=== PATIENT | female | born 1995 | race Caucasian/White ===

== ENCOUNTER 2017-05-15 19:51 | Emergency (ER) | payer BC, OTHER ==
[~2017-05-15] VITALS: Ht 167.6 cm; Wt 110.1 kg
[2017-05-15 19:54] VITALS: TEMP 36.5; Ht 167.6 cm; Wt 110.1 kg
[2017-05-15] MEDS ORDERED: ONDANSETRON INJ 2 MG/ML 2 ML VIAL IV STA ×2 (20:38→22:49)
[2017-05-15] MEDS ORDERED: MECLIZINE HCL 25 MG TAB PO STA (20:38)
[2017-05-15] MEDS ORDERED: SODIUM CHLORIDE 0.9% 1000ML 1,000 ML IV ONE (20:45)
--- NOTE | 2017-05-15 21:15 | EMERGENCY ROOM VISIT NOTE ---
History First contact with patient: 20:24 Chief Complaint: DIZZY Stated Complaint: DIZZY Nursing Triage Summary: Pt stated that she was sitting at her computer around 1830 and became dizzy. Pt then went to lay down and felt like she was going to throw up. Pt became diaphoretic and has thrown up x4. Pt stated that her dizzyness is getting worse. History of Present Illness The patient is a 21 year old female who presents to the Emergency Room with complaints of a sudden onset of dizziness that occurred at approximately 6 PM this afternoon. The patient was working on her computer when she all of a sudden felt extremely sweaty. She laid down in bed. She says that the room then began to spin and she became nauseated. She did have one episode of emesis. She denies any headache. No changes in vision. She does complain that every time she opens her eyes, she feels like the room is spinning. She denies any history of vertigo. This has never happened to her before. She did not eat anything all day. She does report trying to stay well hydrated with water. She denies any chest pain or pressure. No heart palpitations. No recent illnesses. She denies any abdominal pain. No changes in bowel movements. Review of Systems 10 system review performed and negative unless noted in HPI or below Past Medical/Surgical History Otherwise healthy Family History Patient denies any significant family medical history Social History Smoking Status: Never Smoker Alcohol Use: occasionally Drug Use: none Marital Status: in relationship Occupation Status: [employer] Current/Historical Medications Scheduled Meclizine Hcl (Meclizine Hcl), 1 TAB PO TID Scheduled PRN Ondansetron Hcl (Zofran), 4 MG PO Q8H PRN for Nausea Allergies Coded Allergies: No Known Allergies (Unverified , 05/15/17) Physical Exam Vital Signs Date Time Temp Pulse Resp B/P (MAP) Pulse Ox O2 Delivery O2 Flow Rate FiO2 05/15/17 21:31 61 24 131/70 100 Room Air 05/15/17 21:03 74 05/15/17 19:54 36.5 74 18 123/85 100 Room Air Physical Exam VITALS: Vitals are noted on the nurse's note and reviewed by myself. Vital signs stable. GENERAL: 21-year-old female, in mild distress, nondiaphoretic, well-developed well-nourished. SKIN: The skin was without rashes, erythema, edema, or bruising. HEAD: Normocephalic atraumatic. EARS: External auditory canals clear, tympanic membranes pearly alfonso without erythema or effusion bilaterally. EYES: Pupils equal round and reactive to light and accommodation. Conjunctivae without injection, sclerae without icterus. Extraocular movements intact. Slight horizontal nystagmus noted bilaterally. MOUTH: Mucous membranes slightly dry. Tonsils are not enlarged. Pharynx without erythema or exudate. Uvula midline. Airway patent. Tongue does not deviate. NECK: . No lymphadenopathy. Cervical spine is nontender. No JVD. HEART: Regular rate and rhythm without murmurs gallops or rubs. LUNGS: Clear to auscultation bilaterally without wheezes, rales or rhonchi. No accessory muscle use. ABDOMEN: Positive bowel sounds x 4.Soft, nontender, without organomegaly. No guarding or rebound tenderness. MUSCULOSKELETAL: No muscle atrophy, erythema, or edema noted. Strength 5/5 throughout. NEURO: Patient was alert and oriented to person place and time. Cerebellar function intact. Negative Romberg. Normal sensation to touch. No focal neurological deficits. Medical Decision & Procedures Laboratory Results 05/15/17 21:39 Red Blood Count 5.20, Mean Corpuscular Volume 81.2, Mean Corpuscular Hemoglobin 27.1, Mean Corpuscular Hemoglobin Concent 33.4, Mean Platelet Volume 8.7, Neutrophils (%) (Auto) 87.4, Lymphocytes (%) (Auto) 8.0, Monocytes (%) (Auto) 4.3, Eosinophils (%) (Auto) 0.1, Basophils (%) (Auto) 0.1, Neutrophils # (Auto) 13.10, Lymphocytes # (Auto) 1.20, Monocytes # (Auto) 0.65, Eosinophils # (Auto) 0.02, Basophils # (Auto) 0.02 05/15/17 21:39 Test 05/15/17 21:39 05/15/17 21:45 White Blood Count 15.01 K/uL (4.8-10.8) Red Blood Count 5.20 M/uL (4.2-5.4) Hemoglobin 14.1 g/dL (12.0-16.0) Hematocrit 42.2 % (37-47) Mean Corpuscular Volume 81.2 fL (80-100) Mean Corpuscular Hemoglobin 27.1 pg (25-34) Mean Corpuscular Hemoglobin Concent 33.4 g/dl (32-36) Platelet Count 461 K/uL (130-400) Mean Platelet Volume 8.7 fL (7.4-10.4) Neutrophils (%) (Auto) 87.4 % Lymphocytes (%) (Auto) 8.0 % Monocytes (%) (Auto) 4.3 % Eosinophils (%) (Auto) 0.1 % Basophils (%) (Auto) 0.1 % Neutrophils # (Auto) 13.10 K/uL (1.4-6.5) Lymphocytes # (Auto) 1.20 K/uL (1.2-3.4) Monocytes # (Auto) 0.65 K/uL (0.11-0.59) Eosinophils # (Auto) 0.02 K/uL (0-0.5) Basophils # (Auto) 0.02 K/uL (0-0.2) RDW Standard Deviation 38.0 fL (36.4-46.3) RDW Coefficient of Variation 12.7 % (11.5-14.5) Immature Granulocyte % (Auto) 0.1 % Immature Granulocyte # (Auto) 0.02 K/uL (0.00-0.02) Anion Gap 8.0 mmol/L (3-11) Est Creatinine Clear Calc Drug Dose 130.0 ml/min Estimated GFR () 111.9 Estimated GFR (Non- 96.6 BUN/Creatinine Ratio 12.6 (10-20) Calcium Level 9.2 mg/dl (8.5-10.1) Total Bilirubin 0.4 mg/dl (0.2-1) Aspartate Amino Transf (AST/SGOT) 17 U/L (15-37) Alanine Aminotransferase (ALT/SGPT) 29 U/L (12-78) Alkaline Phosphatase 87 U/L (45-117) Total Protein 8.2 gm/dl (6.4-8.2) Albumin 3.9 gm/dl (3.4-5.0) Globulin 4.3 gm/dl (2.5-4.0) Albumin/Globulin Ratio 0.9 (0.9-2) Lipase 184 U/L (73-393) Human Chorionic Gonadotropin, Qual NEG (NEG) Medications Administered Medications (Trade) Dose Ordered Sig/Gerber Route Start Time Stop Time Status Last Admin Dose Admin Sodium Chloride 1,000 ml @ 999 mls/hr Q1H1M ONCE IV 05/15/17 20:45 05/15/17 21:45 DC 05/15/17 21:30 999 MLS/HR Meclizine HCl (Antivert Tab) 25 mg NOW STAT PO 05/15/17 20:38 05/15/17 20:40 DC 05/15/17 21:31 25 MG Ondansetron HCl (Zofran Inj) 4 mg NOW STAT IV 05/15/17 20:38 05/15/17 20:40 DC 05/15/17 21:30 4 MG ED Course Patient was seen and examined Vital signs including blood pressure were reviewed medications list was verified with patient Labs were obtained, and a saline lock was established The patient was hydrated with 1 L of normal saline. She was given meclizine 25 mg po and Zofran 4 mg IV Upon reassessment, the patient was feeling much better. We discussed the results of her workup. We also discussed her diagnosis. She voiced understanding. The patient was given a full pack of meclizine and Zofran I reviewed discharge instructions the patient. They voiced understanding and had no further questions. Medical Decision Differential diagnosis: Vertigo, dehydration, hypoglycemia, acute CVA, atypical migraine, This patient is a 21-year-old female that presents emergency department with a sudden onset of dizziness that she describes as a spinning sensation in addition to diaphoresis and one episode of vomiting. On exam, the patient had horizontal nystagmus. Otherwise, her exam was benign. She did not complain of any headaches. She had very good symptom relief with meclizine, fluids and Zofran. It is likely that she is suffering from vertigo. She did have mild leukocytosis. This is likely secondary to vomiting. She did not have any other infectious symptoms. She was given a prescription for meclizine and Zofran. She was instructed to follow-up with [facility]. She is in agreement to return to the emergency department with any new or worsening symptoms. Impression Primary Impression: Vertigo Departure Information Dispostion Home / Self-Care Condition GOOD Prescriptions Ondansetron Hcl (ZOFRAN) 4 Mg Tab 4 MG PO Q8H Y for Nausea, #20 TAB Prov: Adeola Em PA-C 05/15/17 Meclizine Hcl (MECLIZINE HCL) 25 Mg Tab 1 TAB PO TID for vertigo, #30 TAB Prov: Adeola Em PA-C 05/15/17 Referrals [facility] (PCP) Patient Instructions ED Vertigo Unspecified, My [facility] Additional Instructions You were treated in the emergency department for severe dizziness, vomiting and sweating. This is likely from vertigo. Please take meclizine 1 tab every 8 hours as needed for returning dizziness. Please take Zofran 1 tab every 8 hours as needed for nausea. It is important to stay well hydrated and eat regular meals please follow-up with [facility] within one week for recheck Return to the emergency department if you have any of the following symptoms: -Fever of 103F or greater -Persistent vomiting - Persistent diarrhea -Lethargy -Chest pain -Shortness of breath -Worsening or uncontrolled dizziness -Slurred speech or confusion
[2017-05-15 22:12] LABS: PREG INTERNAL NEGATIVE QC NEG CLEAR BACKGROUND; PREG INTERNAL POSITIVE QC POS CONTROL LINE
[2017-05-15 22:12] LABS: BUN/CREATININE RATIO 12.6 (10-20); CALCIUM 9.2 mg/dl (8.5-10.1); CREATININE 0.86 mg/dl (0.60-1.20); POTASSIUM 3.8 mmol/L (3.5-5.1)
[2017-05-15 22:14] LABS: ALB/GLOB RATIO 0.9 (0.9-2)
[2017-05-15 22:22] LABS: BASO % 0.1 %; BASO ABS # 0.02 K/uL (0-0.2); COMPLETE YES; EOS % 0.1 %; HEMATOCRIT 42.2 % (37-47); IG% 0.1 %; MEAN CELL VOLUME 81.2 fL (80-100); MEAN CORPUSCULAR HEMOGLOBIN 27.1 pg (25-34); MEAN CORPUSCULAR HGB CONC 33.4 g/dl (32-36); MEAN PLATELET VOLUME 8.7 fL (7.4-10.4); MONO % 4.3 %; NEUT % 87.4 %; PLATELET COUNT 461 K/uL (130-400); WHITE BLOOD COUNT 15.01 K/uL (4.8-10.8)
[2017-05-15] MEDS ORDERED: MECL1TAB42 PO (22:25)
[2017-05-15] MEDS ORDERED: ONDA4TAB46 PO (22:25)
[2017-05-15] MEDS ORDERED: MECLIZINE HCL 25MG HOME PACK PO STA (22:30)
[2017-05-15] MEDS ORDERED: ONDANSETRON HOME PACK 4MG OD TAB PO STA (22:30)
[2017-05-15] MEDS ORDERED: LORAZEPAM 2 MG/ML 1 ML VIAL IV STA (23:00)
[2017-05-15] MEDS ORDERED: METHYLPREDNISOLONE 1000 MG/16 ML IV STA (23:00)
[2017-05-15 23:33] LABS: URINE APPEARANCE CLEAR (CLEAR); URINE BILIRUBIN NEG (NEG); URINE COLOR YELLOW; URINE NITRITE NEG (NEG); URINE PH 5.5 (4.5-7.5); URINE SPECIFIC GRAVITY 1.015 (1.000-1.030); UROBILINOGEN NEG (NEG)
[2017-05-15 23:38] LABS: MANUAL MICROSCOPIC REQUIRED? NO; REVIEW REQ? NO
[2017-05-16] MEDS ORDERED: METHYLPREDNISOLONE 125 MG VIAL ONE
[2017-05-16 00:33] VITALS: BP 145/71; PULSE 72; O2SAT 95
--- NOTE | 2017-05-16 00:45 | EMERGENCY ROOM VISIT NOTE ---
ED Visit Note First contact with patient: 23:26 Patient care was assumed from Adeola Em PA-C at the time of shift change. Please see Ms. Em's dictation for full history of present illness. Emergency Department course prior to my assumption of care. In short, the patient has been having vertiginous symptoms for the past few days. She was awaiting CT results of the head, which are as below: Preliminary Findings Only See Final Report For Complete Findings CT HEAD: No acute intracranial abnormality. No ICH, mass effect or edema. Visualized sinuses and mastoid air cells are clear. On reevaluation the patient was feeling well and was quite comfortably resting in her emergency department bed. She does feel stable for discharge home, and this appears reasonable. The patient will have prescriptions for meclizine and Zofran. She was asked to follow with her primary care physician and was invited back to the emergency department with any new, worsening, or concerning symptoms. Current/Historical Medications Scheduled Meclizine Hcl (Meclizine Hcl), 1 TAB PO TID Scheduled PRN Ondansetron Hcl (Zofran), 4 MG PO Q8H PRN for Nausea Allergies Coded Allergies: No Known Allergies (Unverified , 05/15/17) Vital Signs Date Time Temp Pulse Resp B/P (MAP) Pulse Ox O2 Delivery O2 Flow Rate FiO2 05/16/17 00:33 72 18 145/71 95 Room Air 05/15/17 23:17 78 18 125/63 98 Room Air 05/15/17 23:03 78 20 147/92 98 Room Air 05/15/17 21:31 61 24 131/70 100 Room Air 05/15/17 21:03 74 05/15/17 19:54 36.5 74 18 123/85 100 Room Air Laboratory Results 05/15/17 21:39 Red Blood Count 5.20, Mean Corpuscular Volume 81.2, Mean Corpuscular Hemoglobin 27.1, Mean Corpuscular Hemoglobin Concent 33.4, Mean Platelet Volume 8.7, Neutrophils (%) (Auto) 87.4, Lymphocytes (%) (Auto) 8.0, Monocytes (%) (Auto) 4.3, Eosinophils (%) (Auto) 0.1, Basophils (%) (Auto) 0.1, Neutrophils # (Auto) 13.10, Lymphocytes # (Auto) 1.20, Monocytes # (Auto) 0.65, Eosinophils # (Auto) 0.02, Basophils # (Auto) 0.02 05/15/17 21:39 Test 05/15/17 21:39 05/15/17 21:45 05/15/17 23:05 White Blood Count 15.01 K/uL (4.8-10.8) Red Blood Count 5.20 M/uL (4.2-5.4) Hemoglobin 14.1 g/dL (12.0-16.0) Hematocrit 42.2 % (37-47) Mean Corpuscular Volume 81.2 fL (80-100) Mean Corpuscular Hemoglobin 27.1 pg (25-34) Mean Corpuscular Hemoglobin Concent 33.4 g/dl (32-36) Platelet Count 461 K/uL (130-400) Mean Platelet Volume 8.7 fL (7.4-10.4) Neutrophils (%) (Auto) 87.4 % Lymphocytes (%) (Auto) 8.0 % Monocytes (%) (Auto) 4.3 % Eosinophils (%) (Auto) 0.1 % Basophils (%) (Auto) 0.1 % Neutrophils # (Auto) 13.10 K/uL (1.4-6.5) Lymphocytes # (Auto) 1.20 K/uL (1.2-3.4) Monocytes # (Auto) 0.65 K/uL (0.11-0.59) Eosinophils # (Auto) 0.02 K/uL (0-0.5) Basophils # (Auto) 0.02 K/uL (0-0.2) RDW Standard Deviation 38.0 fL (36.4-46.3) RDW Coefficient of Variation 12.7 % (11.5-14.5) Immature Granulocyte % (Auto) 0.1 % Immature Granulocyte # (Auto) 0.02 K/uL (0.00-0.02) Anion Gap 8.0 mmol/L (3-11) Est Creatinine Clear Calc Drug Dose 130.0 ml/min Estimated GFR () 111.9 Estimated GFR (Non- 96.6 BUN/Creatinine Ratio 12.6 (10-20) Calcium Level 9.2 mg/dl (8.5-10.1) Total Bilirubin 0.4 mg/dl (0.2-1) Aspartate Amino Transf (AST/SGOT) 17 U/L (15-37) Alanine Aminotransferase (ALT/SGPT) 29 U/L (12-78) Alkaline Phosphatase 87 U/L (45-117) Total Protein 8.2 gm/dl (6.4-8.2) Albumin 3.9 gm/dl (3.4-5.0) Globulin 4.3 gm/dl (2.5-4.0) Albumin/Globulin Ratio 0.9 (0.9-2) Lipase 184 U/L (73-393) Human Chorionic Gonadotropin, Qual NEG (NEG) Urine Color YELLOW Urine Appearance CLEAR (CLEAR) Urine pH 5.5 (4.5-7.5) Urine Specific [place] 1.015 (1.000-1.030) Urine Protein NEG (NEG) Urine Glucose (UA) NEG (NEG) Urine Ketones NEG (NEG) Urine Occult Blood NEG (NEG) Urine Nitrite NEG (NEG) Urine Bilirubin NEG (NEG) Urine Urobilinogen NEG (NEG) Urine Leukocyte Esterase NEG (NEG) Urine Test NEG (NEG) Medications Administered Medications (Trade) Dose Ordered Sig/Gerber Route Start Time Stop Time Status Last Admin Dose Admin Sodium Chloride 1,000 ml @ 999 mls/hr Q1H1M ONCE IV 05/15/17 20:45 05/15/17 21:45 DC 05/15/17 21:30 999 MLS/HR Meclizine HCl (Antivert Tab) 25 mg NOW STAT PO 05/15/17 20:38 05/15/17 20:40 DC 05/15/17 21:31 25 MG Ondansetron HCl (Zofran Inj) 4 mg NOW STAT IV 05/15/17 20:38 05/15/17 20:40 DC 05/15/17 21:30 4 MG Meclizine HCl (Antivert 25MG Home Pack) 1 homepack NOW STAT PO 05/15/17 22:30 05/15/17 22:31 DC 05/16/17 00:37 1 HOMEPACK Ondansetron HCl (ZOFRAN ODT 4MG Home Pack) 1 homepack NOW STAT PO 05/15/17 22:30 05/15/17 22:31 DC 05/16/17 00:37 1 HOMEPACK Ondansetron HCl (Zofran Inj) 4 mg NOW STAT IV 05/15/17 22:49 05/15/17 22:51 DC 05/16/17 00:02 4 MG Lorazepam (Ativan Inj) 0.5 mg NOW STAT IV 05/15/17 23:00 05/15/17 23:02 DC 05/16/17 00:02 0.5 MG Methylprednisolone Sodium Succinate (Solu-Medrol IV) 125 mg STK-MED ONCE .ROUTE 05/16/17 00:00 05/16/17 00:01 DC 05/16/17 00:03 125 MG Departure Information Impression Primary Impression: Vertigo Dispostion Home / Self-Care Condition GOOD Prescriptions Ondansetron Hcl (ZOFRAN) 4 Mg Tab 4 MG PO Q8H Y for Nausea, #20 TAB Prov: Adeola Em PA-C 05/15/17 Meclizine Hcl (MECLIZINE HCL) 25 Mg Tab 1 TAB PO TID for vertigo, #30 TAB Prov: Adeola Em PA-C 05/15/17 Referrals [facility] (PCP) Patient Instructions My [facility] [address], ED Vertigo Unspecified Additional Instructions You were treated in the emergency department for severe dizziness, vomiting and sweating. This is likely from vertigo. Please take meclizine 1 tab every 8 hours as needed for returning dizziness. Please take Zofran 1 tab every 8 hours as needed for nausea. It is important to stay well hydrated and eat regular meals please follow-up with [facility] within one week for recheck Return to the emergency department if you have any of the following symptoms: -Fever of 103F or greater -Persistent vomiting - Persistent diarrhea -Lethargy -Chest pain -Shortness of breath -Worsening or uncontrolled dizziness -Slurred speech or confusion
--- NOTE | 2017-05-16 06:53 | DIAGNOSTIC IMAGING REPORT ---
HEAD WITHOUT CONTRAST (CT) CT DOSE: 537.48 mGy.cm HISTORY: Mental status change dizziness, r/o cava TECHNIQUE: Multiaxial CT images of the head were performed without the use of intravenous contrast. A dose lowering technique was utilized adhering to the principles of ALARA. Comparison: None. Findings: The paranasal sinuses and mastoid air cells are clear. The calvarium and skull base are intact. The ventricles and sulci are within normal limits. There is no mass, hematoma, midline shift, or acute infarct. Impression: No acute intracranial abnormality. The above report was generated using voice recognition software. It may contain grammatical, syntax or spelling errors. Electronically signed by: Lionel Underwood M.D. 05/16/2017 6:52 AM Dictated Date/Time: 05/16/2017 6:51 AM
== END 2017-05-16 00:43 | disposition home or self-care (01) ==
LOC: C.EDB 19:55
DX: R42 Dizziness and giddiness (principal)